=== PATIENT | male | born 1965 | race Caucasian/White ===

== ENCOUNTER 2019-03-29 05:55 | Emergency (ER) | payer BC ==
[~2019-03-29] VITALS: Ht 185.4 cm; Wt 102.1 kg
[2019-03-29 06:10] VITALS: BP_SYST 165
[2019-03-29] MEDS ORDERED: LIDOCAINE/EPI 1% 1:100000 20 ML VIAL INJ ONE (06:45)
[2019-03-29 07:31] VITALS: BP_SYST 165
== END 2019-03-29 07:31 | disposition home or self-care (01) ==
LOC: SED 05:55
DX: L03.011 Cellulitis of right finger (principal)
CPT/HCPCS: 99283

== ENCOUNTER 2020-06-26 18:40 | Emergency (ER) | payer BC ==
[~2020-06-26] VITALS: Ht 185.4 cm; Wt 102.1 kg
[2020-06-26 18:59] VITALS: BP_SYST 123
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
--- NOTE | 2020-06-26 20:50 | NUR ---
ER at bedside examining patient.
[2020-06-26 21:02] VITALS: BP_SYST 118
--- NOTE | 2020-06-26 21:02 | NUR ---
PATIENT LEFT WITHOUT DISCHARGE PAPERS. Patient given verbal discharge instructions and verbalizes understanding. ER MD discussed with patient the results and treatment provided. Patient in stable condition. ID arm band removed. NO Rx given. Patient educated on pain management and to follow up with PMD. Pain Scale 0/10 Opportunity for questions provided and answered.
== END 2020-06-26 21:02 | disposition home or self-care (01) ==
LOC: SED 18:40
DX: S01.01XA Laceration without foreign body of scalp, initial encounter (principal); W22.8XXA Striking against or struck by other objects, initial encounter; Y93.89 Activity, other specified; Y92.89 Other specified places as the place of occurrence of the external cause; Y99.8 Other external cause status
CPT/HCPCS: 99281

== ENCOUNTER 2023-02-13 13:37 | Emergency (ER) | payer BC ==
[~2023-02-13] VITALS: Ht 185.4 cm; Wt 111.1 kg
[2023-02-13 14:02] VITALS: BP_SYST 138; PULSE 63; RESP 18; TEMP 97; O2SAT 95
[2023-02-13] MEDS ORDERED: MECLIZINE HCL 25 MG TABLET (ANITVERT) PO ONE (14:15)
[2023-02-13] MEDS ORDERED: ONDANSETRON 4 MG ODT TAB PO ONE (14:15)
[2023-02-13 14:37] LABS: BASOPHILS # (AUTO) 0.1 K/uL (0.0-0.2); BASOPHILS % (AUTO) 0.6 % (0.0-2.0); EOSINOPHILS # (AUTO) 0.1 K/uL (0.0-0.4); EOSINOPHILS % (AUTO) 1.4 % (0.0-4.0); HEMATOCRIT 48.4 % (36-54); HEMOGLOBIN 16.7 g/dL (14.0-18.0); LYMPHOCYTES # (AUTO) 1.1 K/uL (1.0-5.5); LYMPHOCYTES % (AUTO) 12.2 % (20.5-51.5); MEAN CORPUSCULAR HEMOGLOBIN 30 pg (27-31); MEAN CORPUSCULAR HGB CONC 35 % (32-36); MEAN CORPUSCULAR VOLUME 88 fL (79.0-98.0); MONOCYTES # (AUTO) 0.4 K/uL (0.0-1.0); MONOCYTES % (AUTO) 4.3 % (1.7-9.3); NEUTROPHILS # (AUTO) 7.1 K/uL (1.8-7.7); NEUTROPHILS % (AUTO) 81.5 % (40.0-70.0); PLATELET COUNT (AUTO) 202 K/uL (130-430); RED BLOOD CELL COUNT(AUTO) 5.52 MIL/uL (4.2-6.2); RED CELL DISTRIBUTION WIDTH 12.7 % (9.0-15.0); WHITE BLOOD COUNT (AUTO) 8.7 K/uL (4.8-10.8)
[2023-02-13 14:51] LABS: ANION GAP 7 (5-15); CALCIUM 8.9 mg/dL (8.4-11.0); CARBON DIOXIDE 29 mmol/L (23-29); CHLORIDE 103 mmol/L (98-107); CREATININE 1.06 mg/dL (0.55-1.30); GFR AFRICAN AMERICAN 93 mL/min (>90); GLUCOSE 112 mg/dL (74-106); SODIUM SERUM 139 mmol/L (136-145); UREA NITROGEN, BLOOD 16 mg/dL (8-21)
[2023-02-13 15:02] LABS: GFR NON AFRICAN-AMERICAN 77 mL/min (>90)
[2023-02-13 15:07] LABS: ALANINE AMINOTRANSFERASE 87 U/L (12-78); ALBUMIN 4.2 g/dL (3.4-4.8); ASPARTATE AMINOTRANSFERASE 38 U/L (10-37); TOTAL BILIRUBIN 0.7 mg/dL (0.0-1.0); TOTAL PROTEIN, SERUM 7.5 g/dL (6.4-8.3)
[2023-02-13] MEDS ORDERED: ONDA-8 TL (15:40)
[2023-02-13] MEDS ORDERED: AMOX500C2 PO (15:40)
[2023-02-13] MEDS ORDERED: MECL-108 PO (15:40)
[2023-02-13] MEDS ORDERED: cefTRIAXone 500 MG in LIDOCAINE 1%, 20 ML MDV 1 ML IM ONE (15:45)
[2023-02-13 16:00] VITALS: BP_SYST 135; PULSE 65; RESP 18; TEMP 97.5; O2SAT 97
== END 2023-02-13 16:15 | disposition home or self-care (01) ==
LOC: SED 13:37
DX: H81.12 Benign paroxysmal vertigo, left ear (principal); R11.10 Vomiting, unspecified; H66.92 Otitis media, unspecified, left ear; Z79.899 Other long term (current) drug therapy; Z20.822 Contact with and (suspected) exposure to COVID-19
CPT/HCPCS: 99285; 70450; 71045; 87426; 80053; 83880; 83735; 84443; 85025; 84484; 36415; 93005; 76376; 96372; J8597; Q0162; J0696

== ENCOUNTER 2024-02-10 17:50 | Emergency (ER) | payer BC ==
[~2024-02-10] VITALS: Ht 185.4 cm; Wt 108.9 kg
[~2024-02-10 17:50] MED LIST: AMOX500C2 PO; MECL-108 PO; ONDA-8 TL
[2024-02-10 17:54] VITALS: BP_SYST 123; PULSE 86; RESP 16; TEMP 98.1; O2SAT 97
[2024-02-10] MEDS ORDERED: NAPR-1172 PO (18:27)
[2024-02-10] MEDS ORDERED: METH-776 PO (18:27)
[2024-02-10] MEDS: KETOROLAC TROMETHAMINE 30 MG VIAL IM ONE (18:34)
[2024-02-10 18:42] VITALS: BP_SYST 123; PULSE 86; RESP 16; TEMP 98.1; O2SAT 97
== END 2024-02-10 18:50 | disposition home or self-care (01) ==
LOC: SED 17:50
DX: M25.59 Pain in other specified joint (principal)
CPT/HCPCS: 99283; 96372; J1885